=== PATIENT | female | born 1995 | race Caucasian/White ===

== ENCOUNTER 2023-08-06 13:59 | Emergency (ER) | payer OTHER ==
[~2023-08-06] VITALS: Ht 170.2 cm; Wt 56.8 kg
[2023-08-06 14:24] VITALS: BP 113/66; PULSE 93; RESP 20; TEMP 99.4; O2SAT 99
[2023-08-06] MEDS ORDERED: KETOROLAC 30 MG/ML VIAL IM ONE (14:45)
[2023-08-06] MEDS ORDERED: LIDOCAINE MPF 1% 10 MG/ML VIAL INJ ONE ×2 (14:45→16:00)
[2023-08-06] MEDS ORDERED: LIDOCAINE MPF 1% 10 ML ONE (16:01)
[2023-08-06] MEDS ORDERED: CEPH-588 PO (16:30)
== END 2023-08-06 16:51 | disposition home or self-care (01) ==
LOC: MED 13:59
DX: S61.512A Laceration without foreign body of left wrist, initial encounter (principal); Z79.2 Long term (current) use of antibiotics; W45.8XXA Other foreign body or object entering through skin, initial encounter; Y93.89 Activity, other specified; Y92.89 Other specified places as the place of occurrence of the external cause; Y99.8 Other external cause status
CPT/HCPCS: 12002; 81025; 90471; 90715; 96372; 99284; J1885; J2001

== ENCOUNTER 2023-08-08 15:16 | Emergency (ER) | payer OTHER ==
[~2023-08-08] VITALS: Ht 170.2 cm; Wt 57.2 kg
[~2023-08-08 15:16] MED LIST: CEPH-588 PO
[2023-08-08 15:44] VITALS: BP 107/79; PULSE 79; RESP 16; TEMP 99.6; O2SAT 99
[2023-08-08 16:19] VITALS: BP 112/80; PULSE 75; RESP 16; TEMP 98; O2SAT 99
== END 2023-08-08 16:19 | disposition home or self-care (01) ==
LOC: MED 15:16
DX: S51.812D Laceration without foreign body of left forearm, subsequent encounter (principal); Z48.00 Encounter for change or removal of nonsurgical wound dressing; Z79.2 Long term (current) use of antibiotics; X58.XXXD Exposure to other specified factors, subsequent encounter
CPT/HCPCS: 99281